=== PATIENT | male | born 1940 | race Caucasian/White ===

== ENCOUNTER 2021-01-15 12:19 | Outpatient (CLI) | payer MEDICARE, BC | END 2021-01-15 12:20 | disposition home or self-care (01) | LOC: BICMRI 12:19 | PROVIDERS: ATTEND Family Medicine | DX: M47.816 Spondylosis without myelopathy or radiculopathy, lumbar region (principal); M50.10 Cervical disc disorder with radiculopathy, unspecified cervical region | CPT/HCPCS: 72141; 72148 ==